=== PATIENT | male | born 1980 | race Two or more races ===

== ENCOUNTER 2020-09-29 08:39 | Inpatient (IN) | payer MEDICAID, SELFPAY ==
[~2020-09-29] VITALS: Ht 177.8 cm; Wt 91.9 kg
[~2020-09-29 08:39] MED LIST: ASPI81TA45 PO; ATOR80TA PO; CLOP75TA52 PO; FURO-93 PO; INSU100I28 SQ-INSULIN; INSULINS; METO25TA35 PO/NG
--- NOTE | 2020-09-29 08:47 | NUR ---
THIS IS A 40 YEAR OLD MALE WHO WAS BIB AMBULANCE DUE TO FOUND DOWN, PER EMS, PLACED A LMA, GAVE GAVE 300MG KETAMINE, 100MCG FENTYNL, 5MG VERSED, AND 2MG NARCAN. PT HAS HX OF DM, BS 125. PT BAGGED BY EMS. PLACED PATIENT ON ROUGHENER SINUS, CONTINOUS SP02 AND CYCLE VS. DR. GÓMEZ, PLACED ET TUBE 8, 24 AT THE LIP, VENT SETTING 16, 500, 5 PEEP, 40%.
[2020-09-29] MEDS ORDERED: ROCURONIUM 10 MG/ML,10ML IVPush ONE (09:00)
[2020-09-29] MEDS ORDERED: ETOMIDATE 20 MG/10 ML IV ONE (09:00)
[2020-09-29] MEDS: PROPOFOL 100 ML IV PRN ×5 (09:23→23:26)
[2020-09-29 09:25] LABS: INTERNATIONAL NORMALIZED RATIO 0.96 (0.93-1.1); PROTHROMBIN TIME 10.2 Seconds (9.6-11.5)
[2020-09-29 09:27] LABS: ALANINE AMINOTRANSFERASE 33 U/L (12-78); ALBUMIN 3.6 g/dL (3.4-5.0); ANION GAP 7 mmol/L (5-15); CALCIUM 8.8 mg/dL (8.5-10.1); CHLORIDE 116 mmol/L (98-107); CREATININE 0.95 mg/dL (0.7-1.3)
[2020-09-29 09:29] LABS: BASOPHILS % (AUTO) 1 % (0-1); EOSINOPHILS % (AUTO) 2 % (1-7); LYMPHOCYTES % (AUTO) 36 % (22-44); MEAN CORPUSCULAR HEMOGLOBIN 29.9 pg (27.5-34.5); MEAN PLATELET VOLUME 10.9 fL (7.4-10.4); MONOCYTES % (AUTO) 5 % (2-9); NEUTROPHILS % (AUTO) 57 % (42-75); PLATELET COUNT 210 x10^3/uL (130-400); RED BLOOD COUNT 4.82 x10^6/uL (4.38-5.82)
[2020-09-29 09:30] LABS: MD NO
[2020-09-29] MEDS ORDERED: NOREPINEPHRINE 8 MG in SODIUM CHLORIDE 0.9% 242 ML IV PRN (09:30)
--- NOTE | 2020-09-29 09:30 | NUR ---
assumed care of pt. report from Juanito LUGO. pt STEPHEN REM from home where he was found unresponsive this AM. pt has a hx of DM and had an LMA palced on scene. pt has been re-intubated and has 8.[address], 24cm at lip. no obvious injury. pt is pale cool and diaphoretic. no family currently at bedside multiple atempts have been made to place NG, unsuccessfully
[2020-09-29 09:32] LABS: ALKALINE PHOSPHATASE 125 U/L (45-117); BILIRUBIN,TOTAL 0.4 mg/dL (0.2-1.0); TOTAL PROTEIN 7.6 g/dL (6.4-8.2); TROPONIN I < 0.015 ng/mL (0.000-0.045)
--- NOTE | 2020-09-29 09:34 | NUR ---
vent settings: A/C:16, tidal volume: 500, PEEP: 5, O2: 60%
[2020-09-29 09:36] LABS: CREATINE KINASE, TOTAL 94 U/L (39-308)
--- NOTE | 2020-09-29 09:40 | NUR ---
CXR has been to bedside. NG tube removed. Dr. Lewis aware
[2020-09-29 09:47] LABS: AMPHETAMINE SCREEN, URINE Negative (Negative); BARBITURATE SCREEN, URINE Negative (Negative); BENZODIAZEPINE SCREEN, URINE Negative (Negative); CANNABINOID SCREEN, URINE Positive (Negative); COCAINE SCREEN, URINE Negative (Negative); METHADONE SCREEN, URINE Negative (Negative); OPIATE SCREEN, URINE Negative (Negative)
[2020-09-29] MEDS ORDERED: DEXTROSE 50%, 50ML SYRINGE ONE (09:48)
[2020-09-29] MEDS ORDERED: DEXTROSE 50%, 50ML SYRINGE IVPush PRN (10:00)
[2020-09-29] MEDS ORDERED: DEXTROSE 50%, 50ML SYRINGE IVPush ONE (10:00)
[2020-09-29] MEDS ORDERED: DEXTROSE 4 GM TAB.CHEW PO PRN (10:00)
[2020-09-29] MEDS ORDERED: D5%-0.45NACL+KCL 20MEQ 1,000 ML IV SCH (10:00)
--- NOTE | 2020-09-29 10:00 | NUR ---
pt sister Lauren at bedside. 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 pt sister states that per family, it is possible that he fell in the bathroom early his AM, but it was not witnessed by family, they just heard a "hump" pt sister states that he son found pt on the floor afte he got up this AM around 0645 and called her. she states that she went home to check on him, that she got there about 0730 and called 911. pt sister denies any other hx, but states that pt has had episodes when his sugar "drops" in the past pt sister has been updated on POC
--- NOTE | 2020-09-29 10:05 | NUR ---
atempting to warm pt. bear hugge and warm bklankets placed as well as socks
[2020-09-29] MEDS ORDERED: LABETALOL 5MG/ML, 20ML ONE (10:20)
--- NOTE | 2020-09-29 10:21 | NUR ---
sister Lauren [phone]
--- NOTE | 2020-09-29 10:25 | NUR ---
pt has copious clear secretions, suction done at bedside multiple imes
--- NOTE | 2020-09-29 10:29 | NUR ---
pt to CT scan with RN and RT on monitor
[2020-09-29] MEDS ORDERED: LABETALOL 5MG/ML, 20ML IVPush ONE (10:30)
--- NOTE | 2020-09-29 10:35 | NUR ---
per RT, ET tube has been adjusted and is now 23cm at lip
--- NOTE | 2020-09-29 10:47 | NUR ---
report to Edilson LUGO
[2020-09-29] MEDS ORDERED: ONDANSETRON 2MG/ML, 2ML IVPush PRN (11:00)
[2020-09-29] MEDS ORDERED: GLUCAGON 1 MG IM PRN (11:00)
[2020-09-29] MEDS ORDERED: SODIUM CHLORIDE 0.9% 1,000 ML IV SCH (11:00)
[2020-09-29] MEDS ORDERED: hydrALAzine 20 MG/ML, 1ML ONE (11:23)
--- NOTE | 2020-09-29 11:25 | NUR ---
pt has opened his eyes and is tracking. pt is moving his hands. Dr. Lewis to bedside
[2020-09-29] MEDS ORDERED: hydrALAzine 20 MG/ML, 1ML IV ONE (11:30)
--- NOTE | 2020-09-29 11:30 | NUR ---
NS infusing on admit
--- NOTE | 2020-09-29 11:30 | NUR ---
pt to CCU via [facility] with RN and RT
[2020-09-29] MEDS: ENOXAPARIN 40 MG/0.4 ML SQ SCH (11:54)
[2020-09-29] MEDS ORDERED: PIPERACILLIN/TAZO/PMX 3.375GM 50 ML IV ONE (12:00)
[2020-09-29] MEDS: D5%-0.45NACL+KCL 20MEQ 1,000 ML IV SCH ×2 (12:03→19:39)
[2020-09-29] MEDS: AMPICILLIN/SULBACTAM 3 GM in SODIUM CHLORIDE 0.9% 100 ML IV SCH ×3 (12:03→23:22)
[2020-09-29] MEDS: DOXYCYCLINE 100 MG in DEXTROSE 5% 250 ML IV SCH (12:54)
[2020-09-29] MEDS ORDERED: SUCCINYLCHOLINE 20 MG/ML, 10ML ONE (13:56)
[2020-09-29] MEDS ORDERED: ROCURONIUM 10MG/ML,5ML ONE (13:56)
[2020-09-29] MEDS ORDERED: ETOMIDATE 20 MG/10 ML ONE (13:56)
[2020-09-29] MEDS ORDERED: PROPOFOL 10 MG/ML, 100ML IV ONE (13:56)
[2020-09-29 15:30] LABS: TROPONIN I 0.081 ng/mL (0.000-0.045)
[2020-09-29 17:47] LABS: RAPID INFLUENZA A Negative (Negative); RAPID INFLUENZA B Negative (Negative)
[2020-09-29] MEDS ORDERED: SODIUM CHLORIDE 0.9% 1,000ML IVBOLUS ONE (18:15)
[2020-09-29] MEDS: SODIUM CHLORIDE FLUSH 10ML SYR IVF SCH (20:49)
[2020-09-29 21:34] LABS: TROPONIN I 0.045 ng/mL (0.000-0.045)
[2020-09-30] MEDS: DOXYCYCLINE 100 MG in DEXTROSE 5% 250 ML IV SCH ×2 (00:53→13:03)
[2020-09-30] MEDS: AMPICILLIN/SULBACTAM 3 GM in SODIUM CHLORIDE 0.9% 100 ML IV SCH ×2 (05:33→12:26)
[2020-09-30] MEDS: D5%-0.45NACL+KCL 20MEQ 1,000 ML IV SCH ×2 (05:33→12:00)
[2020-09-30] MEDS ORDERED: PANTOPRAZOLE 40 MG IV IVPush SCH (07:30)
[2020-09-30 08:20] VITALS: BP 105/57
[2020-09-30] MEDS: SODIUM CHLORIDE FLUSH 10ML SYR IVF SCH (09:51)
[2020-09-30] MEDS: ENOXAPARIN 40 MG/0.4 ML SQ SCH (12:14)
[2020-09-30] MEDS ORDERED: DOXY100T PO ×2 (13:00→13:21)
[2020-10-01] MEDS ORDERED: PANTOPRAZOLE 40MG TABLET PO SCH (06:00)
== END 2020-09-30 15:19 | disposition home or self-care (01) | DRG 208 ==
LOC: ED 09:30 → SUATTDRO 09:44 → EDIP 09:47 → CCU 11:37
PROVIDERS: ADMIT Internal Medicine; ATTEND Internal Medicine
PROC: 5A1935Z Respiratory Ventilation, Less than 24 Consecutive Hours (ICD-10-PCS; principal; 2020-09-29)
PROC: 0BH17EZ Insertion of Endotracheal Airway into Trachea, Via Natural or Artificial Opening (ICD-10-PCS; 2020-09-29)
DX: J96.00 Acute respiratory failure, unspecified whether with hypoxia or hypercapnia (principal); G93.41 Metabolic encephalopathy; J18.9 Pneumonia, unspecified organism; Z99.11 Dependence on respirator [ventilator] status; E78.5 Hyperlipidemia, unspecified; I10 Essential (primary) hypertension; I25.10 Atherosclerotic heart disease of native coronary artery without angina pectoris; Z20.822 Contact with and (suspected) exposure to COVID-19; E10.40 Type 1 diabetes mellitus with diabetic neuropathy, unspecified; E10.649 Type 1 diabetes mellitus with hypoglycemia without coma; Z95.1 Presence of aortocoronary bypass graft; Z79.82 Long term (current) use of aspirin; Z79.4 Long term (current) use of insulin
CPT/HCPCS: 36415; 36600; 84145; 87400; C8929; 70450; 71045; 80053; 80307; 80320; 82140; 82550; 82803; 82962; 83036; 83605; 83735; 83880; 84100; 84484; 85025; 85610; 85730; 87040; 87070; 87081; 87205; 87880; 93005; 94002; 94003; 96374; 96375; 99291; G0378; J0295; J1650; J2704; J7060; C9113; G0480; J0330; J0360; J3480; J7030; U0003